=== PATIENT | male | born 1950 | race Caucasian/White ===

== ENCOUNTER → 2016-08-04 | Outpatient (CLI) | payer OTHER, MEDICARE ==
--- NOTE | 2016-08-04 11:36 | US ---
Ultrasound extremity nonvascular History: R10.32, left lower quadrant pain. Left inguinal pain. Findings: Ultrasound imaging of the left inguinal region was performed without and with Valsalva. Whi le standing there is a reducible fat containing inguinal hernia with 3.3 x 2.6 cm of fat extending th rough the inguinal region, which has a neck measuring 0.6 cm. No focal fluid collection. Impression: Fat containing reducible left inguinal hernia. Recommendation: Surgical consult.
--- NOTE | 2016-08-04 13:26 | US ---
Testicular Sonogram Clinical Indications: R 10.32, left lower quadrant pain. Technique: Scrotal contents were imaged with the high-resolution transducer. Color and pulsed Doppl er/duplex were recorded on each side. Findings: Right testis measures 4.7 x 3.2 x 2.2 cm and left testis measures 4.7 x 3.1 x 2.2 cm. Both testes are homogeneous in echogenicity without intratesticular masses. Duplex/Doppler signals are nor mal, without evidence of torsion or inflammation. No epididymal enlargement. Minimal bilateral hydro alejandro. No varicoceles. Impression: 1. No intratesticular masses. 2. No testicular torsion. 3. Minimal bilateral hydroceles.
== END ==
LOC: FIMAGING 10:12
PROVIDERS: ATTEND Family Medicine
DX: R10.32 Left lower quadrant pain (principal)